=== PATIENT | female | born 1990 | race Caucasian/White ===

== ENCOUNTER 2023-07-24 07:27 | Emergency (ER) | payer BC ==
[~2023-07-24] VITALS: Ht 167.6 cm; Wt 90.7 kg
[2023-07-24 07:42] VITALS: BP 134/98
[2023-07-24] MEDS ORDERED: Bactrim Ds Tab1 EACH PO (08:09)
== END 2023-07-24 08:27 | disposition home or self-care (01) ==
LOC: ER 07:27
DX: L03.011 Cellulitis of right finger (principal); Z88.0 Allergy status to penicillin; Z88.1 Allergy status to other antibiotic agents
CPT/HCPCS: 99283